=== PATIENT | male | born 1985 | race Caucasian/White ===

== ENCOUNTER 2017-02-04 12:24 | Emergency (ER) | payer OTHER ==
[~2017-02-04] VITALS: Ht 177.8 cm; Wt 83.9 kg
[2017-02-04] MEDS ORDERED: ACET-69 PO (12:34)
[2017-02-04] MEDS ORDERED: IV NORMAL SALINE 1000 ML BAG IV ONE (13:00)
[2017-02-04 13:20] LABS: BILIRUBIN,DIRECT 0.1 mg/dL (0.0-0.2); BILIRUBIN,TOTAL 0.4 mg/dL (0.2-1.0); CREATININE 1.1 mg/dL (0.6-1.3); POTASSIUM 3.6 mmol/L (3.5-5.1); TOTAL PROTEIN, SERUM 7.6 g/dL (6.4-8.2)
[2017-02-04 14:09] LABS: WHITE BLOOD COUNT (AUTO) 9.6 K/UL (4.0-11.2)
[2017-02-04 14:10] LABS: HEMATOCRIT 39.6 % (40-50); HEMOGLOBIN 13.5 G/DL (14.0-18.0); LYMPHOCYTES % (AUTO) 17.9 % (20.5-51.5); MEAN CORPUSCULAR HEMOGLOBIN 31.8 UUG (27.0-31.0); MEAN CORPUSCULAR HGB CONC 34 g/dL (32.0-37.0); MEAN CORPUSCULAR VOLUME 93.7 FL (82.0-92.0); MONOCYTES % (AUTO) 9.7 % (0.0-11.0); NEUTROPHILS % (AUTO) 72.1 % (38.5-71.5); PLATELET COUNT (AUTO) 377 K/UL (150-450); RED BLOOD CELL COUNT(AUTO) 4.23 MIL/UL (4.7-6.1)
--- NOTE | 2017-02-04 15:01 | NUR ---
Patient discharged to home in stable conditon. Written and verbal after care instructions given. Patient verbalizes understanding of instructions.copy of lab and images given to pt. pt has an appt with pmd this week.pt walks in steady gait,
[2017-02-04 15:03] VITALS: BP 139/81
== END 2017-02-04 15:03 | disposition home or self-care (01) ==
LOC: ER 12:24
DX: K52.9 Noninfective gastroenteritis and colitis, unspecified (principal)
CPT/HCPCS: 71010; 74176; 80048; 80076; 83690; 84484; 85025; 85730; 96360; 99285; A4663; J7030; 36415; 70030-TC

== ENCOUNTER 2017-02-15 11:43 | Emergency (ER) | payer OTHER ==
[~2017-02-15] VITALS: Ht 177.8 cm; Wt 83.9 kg
[~2017-02-15 11:43] MED LIST: ACET-69 PO
--- NOTE | 2017-02-15 13:09 | NUR ---
Patient discharged to home in stable conditon. Written and verbal after care instructions given. Patient verbalizes understanding of instructions. Stressed follow up with pmd or return to ER for worsening s/s.
== END 2017-02-15 13:13 | disposition home or self-care (01) ==
LOC: ER 11:45
DX: K52.9 Noninfective gastroenteritis and colitis, unspecified (principal)
CPT/HCPCS: A4663

== ENCOUNTER 2017-02-18 13:48 | Inpatient (IN) | payer OTHER ==
[~2017-02-18] VITALS: Ht 177.8 cm; Wt 84.4 kg
[2017-02-18 15:49] LABS: BASOPHILS % (AUTO) 0.2 % (0.0-2.0); HEMATOCRIT 31.3 % (40-50); HEMOGLOBIN 10.4 G/DL (14.0-18.0); LYMPHOCYTES # (AUTO) 0.6 K/UL (0.8-4.8); LYMPHOCYTES % (AUTO) 5.4 % (20.5-51.5); MEAN CORPUSCULAR HGB CONC 33 g/dL (32.0-37.0); MEAN CORPUSCULAR VOLUME 93.4 FL (82.0-92.0); MONOCYTES # (AUTO) 0.2 K/UL (0.1-1.30); MONOCYTES % (AUTO) 1.9 % (0.0-11.0); NEUTROPHILS % (AUTO) 92.5 % (38.5-71.5); PLATELET COUNT (AUTO) 435 K/UL (150-450); RED BLOOD CELL COUNT(AUTO) 3.35 MIL/UL (4.7-6.1); WHITE BLOOD COUNT (AUTO) 10.8 K/UL (4.0-11.2)
[2017-02-18 15:56] LABS: CREATININE 1.2 mg/dL (0.6-1.3); POTASSIUM 4.5 mmol/L (3.5-5.1)
[2017-02-18 16:02] LABS: BILIRUBIN,DIRECT 0.1 mg/dL (0.0-0.2); BILIRUBIN,TOTAL 0.3 mg/dL (0.2-1.0); TOTAL PROTEIN, SERUM 6.8 g/dL (6.4-8.2)
--- NOTE | 2017-02-18 17:42 | NUR ---
pt transfered to floor in stable condition.
[2017-02-18 17:58] VITALS: BP 134/76
--- NOTE | 2017-02-18 19:00 | NUR ---
Received pt resting comfortably in bed, watching TV. Family at bedside. AAO X4. IV site on right forearm #20, intact and patent. No acute distress noted. MD ordered patient to be NPO in preparation for tomorrow's procedure. Safety measures maintained. Call light within reach. Will continue to monitor.
[2017-02-18] MEDS ORDERED: ONDANSETRON 4 MG/2 ML VIAL IV PRN (19:30)
[2017-02-18] MEDS ORDERED: ACETAMINOPHEN 325 MG TABLET PO PRN (19:30)
[2017-02-18 20:11] VITALS: BP 117/79
[2017-02-18 20:22] LABS: BASOPHILS % (AUTO) 0.2 % (0.0-2.0); EOSINOPHILS % (AUTO) 0.1 % (0.0-7.0); HEMATOCRIT 31.9 % (40-50); HEMOGLOBIN 10.7 G/DL (14.0-18.0); LYMPHOCYTES # (AUTO) 1.3 K/UL (0.8-4.8); LYMPHOCYTES % (AUTO) 12.1 % (20.5-51.5); MEAN CORPUSCULAR HEMOGLOBIN 30.8 UUG (27.0-31.0); MEAN CORPUSCULAR HGB CONC 34 g/dL (32.0-37.0); MEAN CORPUSCULAR VOLUME 91.6 FL (82.0-92.0); MONOCYTES # (AUTO) 0.5 K/UL (0.1-1.30); NEUTROPHILS # (AUTO) 9.1 K/UL (1.8-8.9); NEUTROPHILS % (AUTO) 82.6 % (38.5-71.5); PLATELET COUNT (AUTO) 453 K/UL (150-450); RED BLOOD CELL COUNT(AUTO) 3.48 MIL/UL (4.7-6.1); WHITE BLOOD COUNT (AUTO) 10.9 K/UL (4.0-11.2)
[2017-02-18 20:32] LABS: BILIRUBIN,DIRECT 0.1 mg/dL (0.0-0.2); BILIRUBIN,TOTAL 0.3 mg/dL (0.2-1.0); TOTAL PROTEIN, SERUM 6.8 g/dL (6.4-8.2)
[2017-02-18] MEDS: FAMOTIDINE. 20 MG/2 ML VIAL IV SCH (21:10)
[2017-02-18] MEDS: IV NS 1000 ML 1,000 ML IV PRN (21:12)
[2017-02-19 04:00] VITALS: BP 127/77
--- NOTE | 2017-02-19 06:10 | NUR ---
Pt slept comfortably t/o the night. IV fluids running. IV site patent and intact. No acute distress noted. Safety measures maintained. VS WNL. All needs attended. Call light within reach. Will continue to monitor.
[2017-02-19] MEDS: FAMOTIDINE. 20 MG/2 ML VIAL IV SCH ×2 (09:00→21:56)
[2017-02-19] MEDS: IV NS 1000 ML 1,000 ML IV PRN (10:05)
[2017-02-19] MEDS ORDERED: GOLYTELY 4000 ML BOTTLE PO ONE (11:00)
[2017-02-19] MEDS ORDERED: MAGNESIUM CITRATE 296 ML BOTTLE PO ONE (11:00)
[2017-02-19 11:13] VITALS: BP 111/63
[2017-02-19] MEDS ORDERED: MAGNESIUM CITRATE 296 ML BOTTLE PO PRN (11:15)
[2017-02-19] MEDS ORDERED: ACET-69 PO (11:36)
--- NOTE | 2017-02-19 11:49 | NUR ---
pt seen on rounding. pt is alert and oriented x 4. no signs of acute distress. vitals stable. pt kept npo throughout the night. pt seen by dr robert baker md. pt states that hes been bleeding on stool since november and felt weak. md ordered to have clear liquids until 4 am. egd and colonoscopy consent signsed and placed on chart. pt given go litely and if pt is not empty until then pt can be given magnesium citrate. iv site patent and intact. ns running. no sings of plebitis or infiltration. procedure will be scheduled for tomorrow afternoon.
[2017-02-19 15:12] VITALS: BP 128/72
[2017-02-19] MEDS ORDERED: ACETAMINOPHEN 650 MG SUPP.RECT RC PRN (15:45)
[2017-02-19] MEDS: LEVOFLOXACIN 500 MG/D5W 500 MG in PREMIXED 1 EACH IV SCH (16:35)
[2017-02-19] MEDS: IV D5/ 0.9% NACL 1,000 ML IV PRN (16:36)
[2017-02-19] MEDS: MORPHINE SULFATE 4 MG/1 ML DISP.SYRIN IV PRN (17:01)
--- NOTE | 2017-02-19 19:16 | NUR ---
pt stable throughout the day. pt put on npo with go lightly and magnesium titrate as needed for bowel prep. pt on d5ns for hydration. pt has consent for egd and colonoscopy on chart. pt given morphine for abdominal pain. will endorse new orders to second shift supervisor nurse.
[2017-02-19 20:00] VITALS: BP 119/70
--- NOTE | 2017-02-19 21:00 | NUR ---
PT NOTED TO HAVE LOW GRADE FEVER 99.6F. PT IS RESTING IN BED, IN NO ACUTE DISTRESS. COOLING MEASURES DONE. WILL CONTINUE TO MONITOR.
[2017-02-19] MEDS: METRONIDAZOLE 500 MG/NS 100ML 500 MG in PREMIXED 1 EACH IV SCH (21:56)
--- NOTE | 2017-02-19 23:00 | NUR ---
PT'S TEMP DECREASED TO 99.4F. CONTINUE WITH COOLING MEASURES AND MONITOR TEMP.
[2017-02-20] VITALS: BP 130/72
[2017-02-20 04:35] VITALS: BP 124/71
[2017-02-20] MEDS: METRONIDAZOLE 500 MG/NS 100ML 500 MG in PREMIXED 1 EACH IV SCH ×3 (05:01→23:44)
[2017-02-20] MEDS: IV D5/ 0.9% NACL 1,000 ML IV PRN (05:36)
--- NOTE | 2017-02-20 06:30 | NUR ---
PT SLEPT WELL, IN NO ACUTE DISTRESS, AFEBRILE. PT IS NPO FOR COLONOSCOPY PROCEDURE IN THE MORNING. CONSENT SIGNED AND PLACED IN PATIENT'S CHART. GOLYTLEY COMPLETED, BM OUTPUT LIQUID/BLOODY, NO FORMED STOOL NOTED. ANTIBIOTIC IV ADMINISTERED ORDERED, NO ADVERSE REACTION NOTED. CALL LIGHT WITHIN REACH, BED ALARM ON. WILL CONTINUE TO MONITOR.
[2017-02-20 06:44] LABS: BASOPHILS % (AUTO) 0.3 % (0.0-2.0); EOSINOPHILS % (AUTO) 0.1 % (0.0-7.0); HEMATOCRIT 27.6 % (40-50); HEMOGLOBIN 9.2 G/DL (14.0-18.0); LYMPHOCYTES # (AUTO) 1.8 K/UL (0.8-4.8); MEAN CORPUSCULAR HEMOGLOBIN 30.5 UUG (27.0-31.0); MEAN CORPUSCULAR HGB CONC 33 g/dL (32.0-37.0); MEAN CORPUSCULAR VOLUME 91.9 FL (82.0-92.0); MONOCYTES # (AUTO) 1.1 K/UL (0.1-1.30); MONOCYTES % (AUTO) 10.5 % (0.0-11.0); NEUTROPHILS # (AUTO) 7.7 K/UL (1.8-8.9); NEUTROPHILS % (AUTO) 72.1 % (38.5-71.5); PLATELET COUNT (AUTO) 377 K/UL (150-450); RED BLOOD CELL COUNT(AUTO) 3.01 MIL/UL (4.7-6.1); WHITE BLOOD COUNT (AUTO) 10.6 K/UL (4.0-11.2)
[2017-02-20 06:54] LABS: BILIRUBIN,TOTAL 0.5 mg/dL (0.2-1.0); MAGNESIUM 1.4 mg/dL (1.8-2.4); PHOSPHOROUS 3.8 mg/dL (2.5-4.9); POTASSIUM 3.7 mmol/L (3.5-5.1); TOTAL PROTEIN, SERUM 5.6 g/dL (6.4-8.2)
--- NOTE | 2017-02-20 07:20 | NUR ---
Received pt in the bathroom . AAO X4. IV site on right forearm #20, intact and patent. No acute distress noted. Safety measures maintained. Call light within reach. Will continue to monitor
--- NOTE | 2017-02-20 07:29 | NUR ---
pt went to gi lab for egd procedure via bed in stable condition.
--- NOTE | 2017-02-20 08:55 | NUR ---
pt received back from recovery room via bed in stable condition.v/s are stable.
[2017-02-20] MEDS: MESALAMINE 400 MG CAPSULE.ER PO SCH ×3 (08:59→18:08)
[2017-02-20] MEDS: HYDROCORTISONE SOD SUCCINATE 100 MG/2 ML VIAL IV SCH ×2 (09:02→20:21)
[2017-02-20] MEDS: FAMOTIDINE. 20 MG/2 ML VIAL IV SCH ×2 (09:02→20:21)
[2017-02-20 09:19] VITALS: BP 142/91
[2017-02-20 10:18] LABS: *BILIRUBIN,URIN NEGATIVE (NEGATIVE); *BLOOD, URINE NEGATIVE (NEGATIVE); *CLARITY,URINE CLEAR (CLEAR); *COLOR,URINE YELLOW (YELLOW); *KETONES,URINE NEGATIVE (NEGATIVE); *PROTEIN,URINE 1+ (NEGATIVE); *UROBILINOGEN,URINE 0.2 E.U./dl (NORMAL); LEUKOCYTE ESTERASE ,URINE NEGATIVE (NEGATIVE); NITRITE, URINE NEGATIVE (NEGATIVE); UGLUCOSE NEGATIVE (NEGATIVE)
[2017-02-20 10:24] LABS: BACTERIA,URINE FEW /HPF (NONE SEEN); RBC,URINE 0-3 /HPF (0-3); SQUAMOUS EPITHELIAL CELL,UR FEW /HPF (NONE SEEN)
[2017-02-20 11:44] VITALS: BP 119/75
[2017-02-20 15:14] VITALS: BP 122/68
[2017-02-20] MEDS: LEVOFLOXACIN 500 MG/D5W 500 MG in PREMIXED 1 EACH IV SCH (15:39)
[2017-02-20] MEDS ORDERED: LIDOCAINE HCL 1% 20 ML VIAL MC ONE (15:46)
[2017-02-20] MEDS ORDERED: PROPOFOL 200 MG/20 ML BOTTLE IV ONE (15:46)
[2017-02-20] MEDS ORDERED: IV NORMAL SALINE 1000 ML BAG IV ONE (15:46)
[2017-02-20] MEDS: MAGNESIUM SULFATE/D5W 100 ML IV SCH ×4 (16:54→21:34)
--- NOTE | 2017-02-20 19:15 | NUR ---
RECEIVED PATIENT RESTING IN BED, ALERT. BAG #2 OF 4 BAGS OF MAGNESIUM RUNNING PER DAY SHIFT NURSE ENDORSEMENT. WILL CONTINUE TO ADMINISTER REMAINING BAGS OF MAGNESIUM PER MD'S ORDER.
[2017-02-20 20:00] VITALS: BP 131/73
[2017-02-20] MEDS: MORPHINE SULFATE 4 MG/1 ML DISP.SYRIN IV PRN (20:23)
[2017-02-20] MEDS: SOD FERRIC GLUC COMPLX/SUCROSE 125 MG in IV NORMAL SALINE 100 ML IV SCH (22:33)
[2017-02-21 04:00] VITALS: BP 115/63
[2017-02-21] MEDS: IV D5/ 0.9% NACL 1,000 ML IV PRN ×2 (04:54→22:02)
[2017-02-21] MEDS: METRONIDAZOLE 500 MG/NS 100ML 500 MG in PREMIXED 1 EACH IV SCH ×2 (05:01→13:49)
--- NOTE | 2017-02-21 06:00 | NUR ---
PATIENT SLEPT WELL, IN NO ACUTE DISTRESS. NO SIGNIFICANT CHANGE OF CONDITION THROUGHOUT THE SHIFT. WILL CONTINUE TO MONITOR
[2017-02-21 06:09] LABS: HEPATITIS A AB, IgM Negative (Negative); HEPATITIS A AB, TOTAL Positive (Negative); HEPATITIS B SURFACE AB Reactive (.); HEPATITIS B SURFACE AG Negative (Negative)
--- NOTE | 2017-02-21 07:30 | NUR ---
Received pt resting comfortably in bed, watching TV. Family at bedside. AAO X4. #20, intact and patent. Safety measures maintained. Call light within reach. Will continue to monitor. breakfast served
[2017-02-21 07:44] LABS: MAGNESIUM 2.1 mg/dL (1.8-2.4); PHOSPHOROUS 3.8 mg/dL (2.5-4.9); POTASSIUM 3.6 mmol/L (3.5-5.1)
[2017-02-21 07:47] LABS: BASOPHILS % (AUTO) 0.2 % (0.0-2.0); HEMATOCRIT 29.7 % (36.7-47.1); HEMOGLOBIN 10.4 g/dL (12.5-16.3); LYMPHOCYTES # (AUTO) 1.8 K/uL (20.0-40.0); LYMPHOCYTES % (AUTO) 13.5 % (20.5-51.5); MEAN CORPUSCULAR HEMOGLOBIN 31.2 uug (23.8-33.4); MEAN CORPUSCULAR HGB CONC 35 g/dL (32.5-36.3); MEAN CORPUSCULAR VOLUME 89.3 fL (73.0-96.2); MONOCYTES % (AUTO) 7.4 % (0.0-11.0); NEUTROPHILS # (AUTO) 10.7 K/uL (1.8-8.9); NEUTROPHILS % (AUTO) 78.9 % (38.5-71.5); PLATELET COUNT (AUTO) 409 K/uL (152-348); RED BLOOD CELL COUNT(AUTO) 3.32 MIL/uL (4.06-5.63)
[2017-02-21 08:02] LABS: WHITE BLOOD COUNT (AUTO) 13.6 K/uL (3.6-10.2)
[2017-02-21] MEDS: MESALAMINE 400 MG CAPSULE.ER PO SCH ×3 (08:10→16:38)
[2017-02-21] MEDS: FAMOTIDINE. 20 MG/2 ML VIAL IV SCH ×2 (08:10→22:01)
[2017-02-21] MEDS: HYDROCORTISONE SOD SUCCINATE 100 MG/2 ML VIAL IV SCH ×2 (08:10→22:01)
--- NOTE | 2017-02-21 10:24 | NUR ---
pt have bloody diarrhea gi dr notified
[2017-02-21 11:07] LABS: *IBD ATYPICAL pANCA <1:20 titer (Neg:<1:20)
[2017-02-21 11:10] VITALS: BP 125/66
[2017-02-21] MEDS ORDERED: SOD FERRIC GLUC COMPLX/SUCROSE 125 MG in IV NORMAL SALINE 100 ML IV SCH (14:00)
[2017-02-21] MEDS: LEVOFLOXACIN 500 MG/D5W 500 MG in PREMIXED 1 EACH IV SCH (15:28)
[2017-02-21] MEDS ORDERED: ACETAMINOPHEN 325 MG TABLET PO PRN (15:45)
[2017-02-21 15:58] VITALS: BP 121/56
[2017-02-21 20:00] VITALS: BP 132/81
[2017-02-21] MEDS: AZITHROMYCIN 250 MG TABLET PO SCH (22:01)
[2017-02-21] MEDS: MORPHINE SULFATE 4 MG/1 ML DISP.SYRIN IV PRN (22:02)
[2017-02-21] MEDS: SOD FERRIC GLUC COMPLX/SUCROSE 125 MG in IV NORMAL SALINE 100 ML IV SCH (22:02)
[2017-02-22 05:40] VITALS: BP 128/75
--- NOTE | 2017-02-22 06:00 | NUR ---
PT SLEPT WELL, NO ACUTE DISTRESS. BLOODY DIARRHEA, AWARE. PT IS AFEBRILE. WILL CONTINUE TO MONITOR.
[2017-02-22 07:08] LABS: MAGNESIUM 1.7 mg/dL (1.8-2.4); PHOSPHOROUS 4.1 mg/dL (2.5-4.9); POTASSIUM 3.9 mmol/L (3.5-5.1)
[2017-02-22 07:26] LABS: BASOPHILS % (AUTO) 0.1 % (0.0-2.0); HEMOGLOBIN 8.9 g/dL (12.5-16.3); LYMPHOCYTES # (AUTO) 1.5 K/uL (20.0-40.0); MEAN CORPUSCULAR HEMOGLOBIN 30.9 uug (23.8-33.4); MEAN CORPUSCULAR HGB CONC 35 g/dL (32.5-36.3); MEAN CORPUSCULAR VOLUME 89.6 fL (73.0-96.2); MONOCYTES # (AUTO) 0.8 K/uL (2.0-10.0); MONOCYTES % (AUTO) 6.3 % (0.0-11.0); NEUTROPHILS # (AUTO) 10.9 K/uL (1.8-8.9); NEUTROPHILS % (AUTO) 82.6 % (38.5-71.5); PLATELET COUNT (AUTO) 355 K/uL (152-348); RED BLOOD CELL COUNT(AUTO) 2.89 MIL/uL (4.06-5.63); WHITE BLOOD COUNT (AUTO) 13.2 K/uL (3.6-10.2)
[2017-02-22 07:28] LABS: HEMATOCRIT 25.9 % (36.7-47.1)
--- NOTE | 2017-02-22 07:30 | NUR ---
Received pt in the bathroom . AAO X4. IV site on right HAND #20, intact and patent. No acute distress noted. Safety measures maintained. Call light within reach. Will continue to monitor
[2017-02-22] MEDS: MESALAMINE 400 MG CAPSULE.ER PO SCH ×3 (08:03→17:09)
[2017-02-22 08:06] LABS: HEPATITIS Be ANTIGEN Negative (Negative)
[2017-02-22] MEDS: FAMOTIDINE. 20 MG/2 ML VIAL IV SCH (08:10)
[2017-02-22] MEDS: HYDROCORTISONE SOD SUCCINATE 100 MG/2 ML VIAL IV SCH (08:10)
[2017-02-22 10:07] LABS: *IBD SACCHAROMYCES CEREV IGA <20.0 Units (0.0-24.9); *IBD SACCHAROMYCES CEREV IGG <20.0 Units (0.0-24.9)
[2017-02-22 10:46] VITALS: BP 118/63
[2017-02-22] MEDS ORDERED: MAGNESIUM OXIDE 400 MG TABLET PO ONE (11:00)
[2017-02-22 13:07] LABS: *QFT TB AG VALUE 0.03 IU/mL (.); *QFT TB GOLD Indeterminate (Negative)
--- NOTE | 2017-02-22 15:03 | NUR ---
pt stable throughout the day.V/S ARE STABLE .PT IS SLEEPING
[2017-02-22 15:04] VITALS: BP 141/79
[2017-02-22] MEDS ORDERED: OMEP20CA10 PO (16:38)
[2017-02-22] MEDS ORDERED: AZIT250T6 PO (16:38)
[2017-02-22] MEDS ORDERED: PRED20TA PO (16:38)
[2017-02-22] MEDS ORDERED: Mesalamine PO (16:38)
[2017-02-22] MEDS: AZITHROMYCIN 250 MG TABLET PO SCH (17:46)
--- NOTE | 2017-02-22 17:53 | NUR ---
D/C ORDERS RECEIVED NOTED AND CARRIED OUT.D/C HEPLOCK PER MD ORDERS.D/C INSTRUCTIONS AND EDUCATIONS GIVEN TO THE PT.PT UNDERSTANDING ALL THE INSTRUCTIONS,PT LEFT THE FACILITY VIAPRIVATE CAR IN STABLE CONDITION.
== END 2017-02-22 17:50 | disposition home or self-care (01) | DRG 385 ==
LOC: ER 13:51 → TELE 17:28 → MED 17:55
PROVIDERS: ADMIT Internal Medicine; ATTEND Internal Medicine
PROC: 0DBP8ZX Excision of Rectum, Via Natural or Artificial Opening Endoscopic, Diagnostic (ICD-10-PCS; 2017-02-20)
PROC: 0DBF8ZX Excision of Right Large Intestine, Via Natural or Artificial Opening Endoscopic, Diagnostic (ICD-10-PCS; 2017-02-20)
PROC: 0DB98ZX Excision of Duodenum, Via Natural or Artificial Opening Endoscopic, Diagnostic (ICD-10-PCS; 2017-02-20)
PROC: 0DB48ZX Excision of Esophagogastric Junction, Via Natural or Artificial Opening Endoscopic, Diagnostic (ICD-10-PCS; 2017-02-20)
PROC: 0DBG8ZX Excision of Left Large Intestine, Via Natural or Artificial Opening Endoscopic, Diagnostic (ICD-10-PCS; principal; 2017-02-20 08:00)
PROC: 0DBL8ZX Excision of Transverse Colon, Via Natural or Artificial Opening Endoscopic, Diagnostic (ICD-10-PCS; 2017-02-20 08:00)
DX: K51.011 Ulcerative (chronic) pancolitis with rectal bleeding (principal); E43 Unspecified severe protein-calorie malnutrition; K26.4 Chronic or unspecified duodenal ulcer with hemorrhage; D62 Acute posthemorrhagic anemia; Z68.26 Body mass index [BMI] 26.0-26.9, adult; B96.81 Helicobacter pylori [H. pylori] as the cause of diseases classified elsewhere; K40.90 Unilateral inguinal hernia, without obstruction or gangrene, not specified as recurrent; K29.70 Gastritis, unspecified, without bleeding; R73.9 Hyperglycemia, unspecified
CPT/HCPCS: 36415; 71020; 76700; 82105; 83550; 83690; 83735; 84100; 85018; 85025; 85610; 85730; 86140; 86480; 86625; 86704; 86705; 86706; 86708; 86709; 86803; 86850; 86900; 86901; 87046; 87177; 87340; 87350; 89055; A4217; A4663; J1720; J1956; J2270; J2916; J3475; J3490; J7030; J7042; Q0144